=== PATIENT | female | born 1990 | race Caucasian/White ===

== ENCOUNTER 2017-06-12 06:13 | Emergency (ER) | END 2017-06-12 11:17 | disposition home or self-care (01) ==

== ENCOUNTER 2018-02-22 20:50 | Outpatient (CLI) | END 2018-02-23 00:58 | disposition home or self-care (01) ==

== ENCOUNTER 2018-02-25 21:29 | Outpatient (CLI) | END 2018-02-26 00:30 | disposition home or self-care (01) ==

== ENCOUNTER 2018-03-01 22:55 | Emergency (ER) | END 2018-03-02 00:58 | disposition home or self-care (01) ==

== ENCOUNTER 2018-03-07 19:28 | Outpatient (CLI) | END 2018-03-07 21:30 | disposition home or self-care (01) ==

== ENCOUNTER 2018-03-08 04:45 | Inpatient (IN) | END 2018-03-11 15:30 | disposition home or self-care (01) | DRG 788 ==

== ENCOUNTER 2018-10-15 13:03 | Emergency (ER) | payer MEDICAID ==
[~2018-10-15] VITALS: Wt 47.2 kg
[~2018-10-15 13:03] MED LIST: CEPH-443 PO; DOCU-144 PO; PREN1TAB79 PO
[2018-10-15] MEDS ORDERED: ONDANSETRON 4 MG INJ IV STA (13:57)
[2018-10-15] MEDS ORDERED: SOD CHLORIDE 0.9% 1,000 ML IV STA (13:57)
[2018-10-15] MEDS ORDERED: KETOROLAC 30 MG INJ IV STA (13:57)
[2018-10-15] MEDS ORDERED: NAPR-985 PO (15:42)
[2018-10-15] MEDS ORDERED: FER325 PO (15:42)
[2018-10-15] MEDS ORDERED: CEPH-443 PO (15:42)
[2018-10-15] MEDS ORDERED: DOCU-144 PO (15:42)
--- NOTE | 2018-10-15 15:50 | ERD ---
ER Documentation Chief Complaint Chief Complaint HEADACHE AND FEVER WITH NO COUGH OR CONGESTION . NO ST OR EAR PAIN HPI 28-year-old female presenting fever with no congestion. Patient states that she has had some right-sided flank pain. No dysuria. Patient denies vomiting. Has had vaginal bleeding for the last 10 days. Patient did take a Plan B pill 3 days ago. Medical history is gestational diabetes. Gave 7 months ago. Mild anemia. Denies medical problems. NKDA. Surgical history . Social history denies ROS All systems reviewed and are negative except as per history of present illness. Medications Home Meds Active Scripts Naproxen* (Naprosyn*) 500 Mg Tablet, 500 MG PO BID PRN for PAIN AND/OR INFLAMMATION, #30 TAB Prov:SOLO HUMPHRIES PA-C 10/15/18 Ferrous Sulfate* (Ferrous Sulfate*) 325 Mg Tabec, 325 MG PO DAILY, #30 TAB Prov:SOLO HUMPHRIES PA-C 10/15/18 Docusate Sodium* (Colace*) 100 Mg Capsule, 100 MG PO TID, #30 CAP Prov:SOLO HUMPHRIES PA-C 10/15/18 Cephalexin* (Keflex*) 500 Mg Capsule, 500 MG PO QID for 7 Days, CAP Prov:SOLO HUMPHRIES PA-C 10/15/18 Docusate Sodium* (Colace*) 100 Mg Capsule, 100 MG PO TID, #30 CAP Prov:JUANA GARCIA MD 07/02/18 Cephalexin* (Keflex*) 500 Mg Capsule, 500 MG PO QID for 5 Days, CAP Prov:JUANA GARCIA MD 07/02/18 Reported Medications Vit W-Ca,Fe,FA(<1 mg) ( Vitamins) 1 Each Tablet, 1 EACH PO, TAB 02/23/18 Allergies Allergies: Coded Allergies: shrimp (Verified Allergy, Mild, Itching , 03/08/18) No Known Drug Allergies (Verified Allergy, Unknown, 02/25/18) PMhx/Soc History of Surgery: Yes ( x1) Anesthesia Reaction: No Hx Neurological Disorder: No Hx Respiratory Disorders: No Hx Cardiac Disorders: No Hx Psychiatric Problems: No Hx Miscellaneous Medical Probl: Yes (on depo provera given on July) Hx Alcohol Use: No (socially) Hx Substance Use: No Hx Tobacco Use: No FmHx Family History: No diabetes, No coronary disease, No other Physical Exam Vitals Vital Signs Date Temp Pulse Resp B/P (MAP) Pulse Ox O2 O2 Flow FiO2 Time Delivery Rate 10/15/18 98.5 98 20 116/77 99 13:06 (90) Physical Exam GENERAL: The patient is well-appearing, well-nourished, in no acute distress HEENT: Atraumatic. Conjunctivae are pink. Pupils equal, round, and reactive to light. There is no scleral icterus. Tympanic membranes clear bilaterally. Oropharynx clear. CHEST: Clear to auscultation bilaterally. There are no rales, wheezes or rhonchi. HEART: Regular rate and rhythm. No murmurs, clicks, rubs or gallops. No S3 or S4. ABDOMEN:Soft, nontender and nondistended. Good bowel sounds. No rebound or guarding. No gross peritonitis. No gross organomegaly or masses. BACK: No midline or flank tenderness. EXTREMITIES: Equal pulses bilaterally. There is no peripheral clubbing, cyanosis or edema. No focal swelling or erythema. Full range of motion. Grossly neurovascularly intact. NEUROLOGIC: Alert and oriented. Cranial nerves II through XII intact. Motor strength in all 4 extremities with 5 out of 5 strength. Sensation grossly inta ct. Normal speech and gait. Result Diagram: 10/15/18 1447 10/15/18 1446 Results 24 hrs Laboratory Tests Test 10/15/18 14:46 10/15/18 14:47 Sodium Level 141 mmol/L Potassium Level 3.7 mmol/L Chloride Level 106 mmol/L Carbon Dioxide Level 27 mmol/L Anion Gap 8 Blood Urea Nitrogen 9 mg/dl Creatinine 0.77 mg/dl Est Glomerular Filtrat Rate mL/min > 60 mL/min Glucose Level 94 mg/dl Calcium Level 9.0 mg/dl Total Bilirubin 0.8 mg/dl Direct Bilirubin 0.00 mg/dl Indirect Bilirubin 0.8 mg/dl Aspartate Amino Transf (AST/SGOT) 29 IU/L Alanine Aminotransferase (ALT/SGPT) 26 IU/L Alkaline Phosphatase 67 IU/L Total Protein 7.3 g/dl Albumin 4.2 g/dl Globulin 3.10 g/dl Albumin/Globulin Ratio 1.35 Lipase 49 U/L POC Beta HCG, Qualitative NEGATIVE White Blood Count 3.4 10^3/ul Red Blood Count 4.11 10^6/ul Hemoglobin 11.7 g/dl Hematocrit 36.1 % Mean Corpuscular Volume 87.8 fl Mean Corpuscular Hemoglobin 28.5 pg Mean Corpuscular Hemoglobin Concent 32.4 g/dl Red Cell Distribution Width 13.2 % Platelet Count 154 10^3/UL Mean Platelet Volume 10.6 fl Immature Granulocytes % 0.300 % Neutrophils % 69.3 % Lymphocytes % 17.8 % Monocytes % 10.2 % Eosinophils % 1.8 % Basophils % 0.6 % Nucleated Red Blood Cells % 0.0 /100WBC Immature Granulocytes # 0.010 10^3/ul Neutrophils # 2.4 10^3/ul Lymphocytes # 0.6 10^3/ul Monocytes # 0.4 10^3/ul Eosinophils # 0.1 10^3/ul Basophils # 0.0 10^3/ul Nucleated Red Blood Cells # 0.0 10^3/ul Urine Color STRAW Urine Clarity CLEAR Urine pH 6.0 Urine Specific [place] 1.004 Urine Ketones NEGATIVE mg/dL Urine Nitrite NEGATIVE mg/dL Urine Bilirubin NEGATIVE mg/dL Urine Urobilinogen NEGATIVE mg/dL Urine Leukocyte Esterase NEGATIVE Andrey/ul Urine Microscopic RBC 1 /HPF Urine Microscopic WBC 6 /HPF Urine Bacteria FEW /HPF Urine Hemoglobin 3+ mg/dL Urine Glucose NEGATIVE mg/dL Urine Total Protein NEGATIVE mg/dl Current Medications Medications Dose Sig/Inna Start Time Status Last (Trade) Ordered Route PRN Stop Time Admin Dose Reason Admin Sodium 1,000 ml @ Q1H STAT 10/15/18 DC 10/15/18 Chloride 1,000 mls/hr IV 13:57 15:03 10/15/18 14:56 Ondansetron 4 mg ONCE STAT 10/15/18 DC 10/15/18 HCl (Zofran IV 13:57 14:55 Inj) 10/15/18 13:59 Ketorolac 30 mg ONCE STAT 10/15/18 DC 10/15/18 Tromethamine IV 13:57 14:56 (Toradol) 10/15/18 13:59 Procedures/MDM MDM: 28-year-old female presenting with headache and flank pain. Patient's exam is non-concerning. Patient's vitals are stable. Patient had may have small urinary tract infection so we will treat with antibiotics but I do recommend patient to follow-up with primary care. I do not feel there is indication for imaging. Patient is discharged with strict ER precautions and told to follow-up with primary care within 1 to 2 days. All questions answered at discharge Departure Diagnosis: Primary Impression: Headache Condition: Stable Patient Instructions: Self-Care for Headaches Additional Instructions: FOLLOW UP WITH YOUR PRIMARY CARE PHYSICIAN TOMORROW.Return to this facility if you are not improving as expected. SOLO HUMPHRIES PA-C October 15, 2018 15:50
[2018-10-15 15:55] VITALS: BP 105/50; PULSE 67; RESP 18
== END 2018-10-15 15:57 | disposition home or self-care (01) ==
LOC: FTE 13:03
DX: R51 Headache (principal)
CPT/HCPCS: 36415; 80053; 81001; 81025; 83690; 85025; 96361; 96374; 96375; J1885; J2405; J7030; Z7502